=== PATIENT | female | born 1995 ===

== ENCOUNTER 2025-05-12 17:39 | Emergency (ER) | payer BC, SELFPAY ==
[2025-05-12 17:42] VITALS: BP 140/77
[2025-05-12 18:43] VITALS: BMI 19.5
[2025-05-12 18:44] VITALS: BP 119/70
--- NOTE | 2025-05-12 19:46 | ED.GENMED ---
History of Present Illness
General
Chief Complaint: Extremity Pain (non-traumatic)
Source: patient
Time Seen by Provider: 05/12/25 18:48
History of Present Illness
History of Present Illness:
30-year-old female presenting to the emergency department for evaluation after noticing bruising to the right volar wrist shortly after lifting a heavier object at home earlier today. Patient states she still is able to range of motion the right
wrist but does cause discomfort especially with flexion. Denies any numbness or tingling to the area. She states no direct trauma that she can think of. No other concerns presently. Patient is right-hand dominant. I
Past History
Past History
ED Past Medical History: None
ED Past Surgical History: None
Social History
Tobacco: Non-smoker
Alcohol: None
Drug: None
Personal: Single
Living: with family
Review of Systems
Review of Systems
All Other Systems: ROS reviewed and negative except as documented in HPI and ROS
Phy Exam
Physical Exam
Physical Exam:
GENERAL: Alert , in no apparent distress
EYE: conjunctiva clear
Head: Normocephalic atraumatic
NECK: Supple,
ENT: mmm.
LUNGS: no acute respiratory distress
NEUROLOGICAL: Alert and oriented
SKIN: Warm and dry, skin intact. Small area of ecchymosis to the distal volar wrist over the metacarpals, Slight tenderness
MUSCULOSKELETAL: well perfused. Easily palpable radial pulse. Cap refill less than 2 seconds and sensation is grossly intact to light touch. Patient allows for full range of motion of all digits, wrist and elbow.
PSYCH: Normal and appropriate interaction.
Scores
Heart Failure Risk
Heart Failure Risk Score: Not Applicable
Heart Score for Chest Pain Patients
STEMI patient?: Not applicable
Withdrawal Assessment of Alcohol
Withdrawal Assessment Completed?: Not applicable
Course
Orders/Labs/Results
Orders:
Orders
05/12/25 17:41
Wrist, Right 3 Views [CR Wrist - Right Min 3 Views] Urgent
Comment:
Reason For Exam: pain
Vital Signs
Initial and Last Documented VS:
Initial Vital Signs
Temp Pulse Resp BP Pulse Ox
98 F 69 18 140/77 100
05/12/25 17:42 05/12/25 17:42 05/12/25 17:42 05/12/25 17:42 05/12/25 17:42
Last Documented Vital Signs
Temp Pulse Resp BP Pulse Ox
98 F 54 14 119/70 100
05/12/25 17:42 05/12/25 18:44 05/12/25 18:44 05/12/25 18:44 05/12/25 19:48
MDM/Problems Addressed
Differential Diagnosis Includes:
Contusion
sprain
fracture
Ligamentous injury
Phlebitis
Deep vein thrombosis
MDM/Problems Addressed:
30-year-old female presenting to the ER for evaluation of nontraumatic right wrist pain and ecchymosis from earlier today. Based off presentation I suspect possible minor tendon injury versus sprain. Will obtain x-ray to further evaluate. I do
not have concern for a phlebitis or deep vein thrombosis. NSAIDs/Tylenol, RICE recommendations. Anticipate discharge home.
*Radiology
Radiology exam reviewed: preliminary read by ED provider
*Pulse Oximetry
SaO2: 100
Oxygen Mode of Delivery: Room air
Patient hypoxic: no
*Critical Care Note
Total Time (30-74mins, 75-104mins- exclusive of procedures): Not Applicable
Patient Management
Escalation/DeEscalation of care consider admission/obs:
X-ray unremarkable. NSAIDs/Tylenol as needed for pain. Stable for discharge home..
ED Attending Note
-
Portions of this chart may have been created with voice recognition software.� Occasional wrong word or��sound alike� substitutions may have occurred due to the inherent limitations of voice recognition software.
Discharge Plan
Departure
Patient Disposition: Home (Routine Discharge)
Date of Disposition: 05/12/25
Time of Disposition: 20:02
Patient with high blood pressure during this ER visit?: Yes
Discharge Problem:
Right wrist pain
Instructions: Contusion
Referrals:
NONE,* [Family Provider, Internal Medicine]
Interventions
Interventions:
*Risk Screen - Suicide Last Done: 05/12/25 18:43
*General Assessment Last Done: 05/12/25 18:43
*Neglect/Abuse Screening Last Done: 05/12/25 18:43
*ED- Fall Risk Assessment Last Done: 05/12/25 18:43
*ED COVID-19 Vaccine History Last Done: 05/12/25 18:43
*Nursing Disposition Last Done: 05/12/25 20:16
ED-Musculoskeletal Assessment Last Done: 05/12/25 18:44
ED-Peripheral Vascular Assessment Last Done: 05/12/25 18:44
ED-Skin Assessment Last Done: 05/12/25 18:44
Discharge Date and Time
Discharge Date/Time: 05/12/25 20:16
Print Language: [place]
== END 2025-05-12 20:16 | disposition home or self-care (01) ==
LOC: EMR 17:39
PROVIDERS: EMERGENCY PHYSICIAN Emergency Medicine
DX: M25.531 Pain in right wrist (principal); S60.211A Contusion of right wrist, initial encounter; X50.0XXA Overexertion from strenuous movement or load, initial encounter
CPT/HCPCS: 99283; 73110